=== PATIENT | female | born 1995 | race Caucasian/White ===

== ENCOUNTER 2022-08-13 20:41 | Emergency (ER) | payer BC ==
[~2022-08-13] VITALS: Ht 175.3 cm; Wt 68.2 kg
[2022-08-13 20:55] VITALS: TEMP 98.3
[2022-08-13 21:33] LABS: BASO % 0.6 % (0.0-2.0); EOS # 0.1 K/mm3 (0.0-0.7); EOS % 0.9 % (0.0-4.0); GRAN # 3.8 K/mm3 (1.4-6.5); HEMOGLOBIN 13.6 g/dl (12.5-16.0); LYMPH # 2.5 K/mm3 (1.2-3.4); LYMPH % 36.6 % (20.0-51.0); MEAN CELL VOLUME 87 fl (80.0-100.0); MEAN CORPUSCULAR HEMOGLOBIN 30 pg (27-31); MEAN CORPUSCULAR HGB CONC 35 g/dl (33.0-37.0); MEAN PLATELET VOLUME 9.5 fl (7.4-10.4); MONO # 0.5 K/mm3 (0.1-0.6); MONO % 6.8 % (1.7-9.3); PLATELET COUNT 400 K/mm3 (130-400); RED BLOOD COUNT 4.51 M/mm3 (4.10-5.30); REDCELL DISTRIBUTION WIDTH-CV 12.1 % (11.5-14.5)
[2022-08-13 21:54] LABS: ALANINE AMINOTRANSFERASE 23 U/L (0-55); ALBUMIN 4.3 gm/dL (3.5-5.0); ALKALINE PHOSPHATASE 54 U/L (40-150); ANION GAP 11 mmol/L (7-16); AST,SGOT 18 U/L (5-34); BILIRUBIN,TOTAL 1.5 mg/dL (0.2-1.2); BLOOD UREA NITROGEN 7 mg/dL (7-19); CARBON DIOXIDE 24 mmol/L (22-29); CHLORIDE 105 mmol/L (98-107); CREATININE, serum 0.81 mg/dL (0.57-1.11); GLUCOSE 99 mg/dL (70-99); POTASSIUM 3.5 mmol/L (3.5-4.5); SODIUM 140 mmol/L (136-145); TOTAL PROTEIN 7.9 gm/dL (6.2-8.1)
[2022-08-13 22:01] LABS: TROPONIN-I < 0.010 ng/mL (0.00-0.033)
[2022-08-13 22:24] VITALS: BP 135/82; PULSE 67
== END 2022-08-13 22:24 | disposition home or self-care (01) ==
LOC: COL.ER 20:41
PROVIDERS: Nurse Practitioner Primary Care
DX: R20.2 Paresthesia of skin (principal); R20.0 Anesthesia of skin; Z28.310 Unvaccinated for COVID-19